=== PATIENT | female | born 1985 | race Caucasian/White ===

== ENCOUNTER 2018-10-07 05:32 | Inpatient (IN) ==
[2018-10-07] MEDS ORDERED: CITRIC ACID/SODIUM CITRATE 30 ML UDCUP PO ONE (05:44)
[2018-10-07] MEDS ORDERED: FAMOTIDINE 20 MG/2 ML VIAL IV ONE (05:44)
[2018-10-07] MEDS ORDERED: OXYTOCIN/LR 20 UNIT/1,000 ML BAG IV ONE ×2 (05:47→08:36)
[2018-10-07] MEDS ORDERED: LACTATED RINGERS 1,000 ML IV ONE ×2 (05:47→08:34)
[2018-10-07 06:03] LABS: Basophils # 0.1 10*3/uL (0.0-0.2); Basophils % 0.3 % (0.0-0.8); Eosinophils # 0.1 10*3/uL (0.0-0.87); Eosinophils % 0.8 % (0.00-10.9); Hematocrit 37.3 VOL% (35.7-47.0); Hemoglobin 12.3 GM/DL (12.0-16.0); Immature Granulocytes % 0.6 %; Immature Granulocytes Absolute 0.09 #; Lymphocytes # 4.1 10*3/uL (1.4-4.0); Lymphocytes % 28.7 % (21.3-54.2); Mean Corpuscular Hemoglobin 29 PG (27-34); Mean Corpuscular Volume 86.3 FL (87-102); Mean Platelet Volume 11.9 FL (9.6-12.0); Monocytes # 1.1 10*3/uL (0.11-0.8); Monocytes % 7.7 % (1.7-12.7); Neutrophils # 8.9 10*3/uL (1.4-7.4); Neutrophils % 61.9 % (38.7-73.9); Platelet Count 181 T/CUMM (130-400); Red Blood Count 4.32 MC/CUMM (3.8-5.5); Red Cell Distribution Width 13.8 % (9.3-17.3); White Blood Count 14.4 T/CUMM (4-12)
[2018-10-07] MEDS ORDERED: miSOPROStol 200 MCG TABLET ONE (07:09)
[2018-10-07] MEDS ORDERED: CARBOPROST TROMETHAMINE 250 MCG/ML AMP IM ONE (07:10)
[2018-10-07] MEDS ORDERED: METHYLERGONOVINE 0.2 MG/1 ML AMP ONE (07:10)
[2018-10-07] MEDS ORDERED: fentaNYL 100 MCG/2 ML VIAL ONE (08:28)
[2018-10-07] MEDS ORDERED: MORPHINE 10 MG/10 ML VIAL ONE (08:29)
[2018-10-07] MEDS ORDERED: ONDANSETRON 4 MG/2 ML VIAL ONE (08:30)
[2018-10-07] MEDS ORDERED: PHENYLEPHRINE 1 MG/10 ML SYRINGE IV ONE (08:34)
[2018-10-07] MEDS ORDERED: ACETAMINOPHEN 1,000 MG/100 ML VIAL IV ONE (08:34)
[2018-10-07] MEDS ORDERED: ACETAMINOPHEN 325 MG TABLET PO PRN (08:36)
[2018-10-07] MEDS ORDERED: RHO(D) IMMUNE GLOBULIN 300 MCG SYRINGE IM ONE (08:36)
[2018-10-07] MEDS ORDERED: ONDANSETRON 4 MG/2 ML VIAL IV PRN (08:36)
[2018-10-07] MEDS ORDERED: BUPIVACAINE SPINAL 0.75% 2 ML AMP SPINAL ONE (08:39)
[2018-10-07 08:48] LABS: Apearance,Urine CLEAR (Clear); Bilirubin,Urine Negative (Negative); Blood, Urine Negative (Negative); Glucose,Urine (UA) Negative (Negative); Ketones,Urine Negative (Negative); Nitrite,Urine Negative (Negative); Protein,Urine Negative; RBC,Urine <1 /HPF (0-4); Squamous Epithelial Cell,Urine Occasional /HPF (0-10); Urine Color Yellow (Yellow); Urine Specific Gravity 1.021 (1.001-1.035); Urine Urobilinogen < 2.0 EU/DL (0.2-1.0); WBC,Urine <1 /HPF (0-6)
[2018-10-07] MEDS ORDERED: LACTATED RINGERS 1,000 ML IV SCH (09:00)
[2018-10-07] MEDS ORDERED: ceFAZolin 1,000 MG in SYRINGE 1 EACH IV SCH (14:00)
[2018-10-07] MEDS: LACTATED RINGERS 1,000 ML IV SCH ×2 (14:35→22:41)
[2018-10-07] MEDS: ceFAZolin 1,000 MG in SYRINGE 1 EACH IV SCH (16:02)
[2018-10-07] MEDS: DOCUSATE SODIUM 100 MG CAPSULE PO SCH (21:28)
[2018-10-08] MEDS: ceFAZolin 1,000 MG in SYRINGE 1 EACH IV SCH (00:02)
[2018-10-08] MEDS: oxyCODONE/ACETAMINOPHEN 5-325 MG TABLET PO PRN ×2 (01:36→21:00)
[2018-10-08 05:56] LABS: Basophils # 0.1 10*3/uL (0.0-0.2); Basophils % 0.4 % (0.0-0.8); Eosinophils # 0.1 10*3/uL (0.0-0.87); Eosinophils % 0.9 % (0.00-10.9); Immature Granulocytes % 0.7 %; Lymphocytes # 2.6 10*3/uL (1.4-4.0); Lymphocytes % 18.8 % (21.3-54.2); Mean Corpuscular HGB Conc 33.2 GM/DL (32-36); Mean Corpuscular Hemoglobin 29 PG (27-34); Mean Corpuscular Volume 86.1 FL (87-102); Mean Platelet Volume 11.8 FL (9.6-12.0); Monocytes % 7.5 % (1.7-12.7); Neutrophils # 9.7 10*3/uL (1.4-7.4); Neutrophils % 71.7 % (38.7-73.9); Platelet Count 163 T/CUMM (130-400); Red Cell Distribution Width 13.8 % (9.3-17.3); White Blood Count 13.6 T/CUMM (4-12)
[2018-10-08 06:01] LABS: Hemoglobin 10.3 GM/DL (12.0-16.0)
[2018-10-08] MEDS: MULTIVITAMIN (PRENATAL) TABLET PO SCH (08:08)
[2018-10-08] MEDS: DOCUSATE SODIUM 100 MG CAPSULE PO SCH ×2 (08:09→20:19)
[2018-10-08] MEDS: IBUPROFEN 800 MG TABLET PO PRN ×2 (08:09→16:29)
[2018-10-08] MEDS: MAGNESIUM HYDROXIDE SUSP 30 ML UDCUP PO PRN (20:19)
[2018-10-08] MEDS: SIMETHICONE CHEW 80 MG TABLET PO PRN (20:20)
[2018-10-09] MEDS: oxyCODONE/ACETAMINOPHEN 5-325 MG TABLET PO PRN ×2 (03:52→08:05)
[2018-10-09] MEDS: SIMETHICONE CHEW 80 MG TABLET PO PRN (03:52)
[2018-10-09] MEDS: IBUPROFEN 800 MG TABLET PO PRN (03:52)
[2018-10-09 08:26] VITALS: BP 116/71
[2018-10-09] MEDS: MULTIVITAMIN (PRENATAL) TABLET PO SCH (09:14)
[2018-10-09] MEDS: MAGNESIUM HYDROXIDE SUSP 30 ML UDCUP PO PRN (09:14)
[2018-10-09] MEDS: DOCUSATE SODIUM 100 MG CAPSULE PO SCH (09:15)
== END 2018-10-09 11:40 | disposition home or self-care (01) | DRG 788 ==
LOC: N.LDOUT 05:32 → N.LD 05:36 → N.OB 13:01
PROVIDERS: ADMIT Obstetrics & Gynecology; ATTEND Obstetrics & Gynecology
PROC: LDCSECT (ICD-10-PCS; 2018-10-07 07:30)